=== PATIENT | female | born 1950 | race Caucasian/White ===

== ENCOUNTER 2020-12-19 11:01 | Emergency (ER) | payer OTHER ==
[~2020-12-19] VITALS: Ht 157.5 cm; Wt 74.8 kg
[2020-12-19] MEDS ORDERED: LISINOPRIL20 MG PO (11:19)
[2020-12-19] MEDS ORDERED: METOPROLOL SUCC50 MG PO (11:19)
[2020-12-19] MEDS ORDERED: NORVASC5 MG PO (11:19)
[2020-12-19] MEDS ORDERED: MELOXICAM15 MG PO (11:20)
[2020-12-19] MEDS ORDERED: SIMVASTATIN80 MG PO (11:20)
[2020-12-19] MEDS ORDERED: VITAMIN D350 MC3 PO (11:21)
[2020-12-19] MEDS ORDERED: FAMOTIDINE 40 M40 M1 PO (11:21)
[2020-12-19 11:28] LABS: URINE BILIRUBIN NEGATIVE (Negative); URINE BLOOD TRACE (Negative); URINE CLARITY CLEAR; URINE COLOR YELLOW; URINE GLUCOSE-RANDOM NEGATIVE (Negative); URINE KETONES NEGATIVE (Negative); URINE LEUKOCYTES-REFLEX TRACE (Negative); URINE NITRITE-REFLEX NEGATIVE (Negative); URINE PROTEIN NEGATIVE (Negative); URINE SPECIFIC GRAVITY <= 1.005 (1.005-1.030); URINE UROBILINOGEN 0.2 E.U./dl (0.2-1.0)
[2020-12-19 11:43] LABS: BACTERIA-REFLEX 1-9 Few /HPF (None Seen); CASTS None Seen /LPF (None Seen); CRYSTALS None Seen /LPF (None Seen); MUCUS 0-3 Light strn/LPF (None Seen); SQUAMOUS 0-3 Few /LPF (0-3); URINE RBC 0-2 Rare /HPF (0-2); URINE WBC-REFLEX 0-5 Rare /HPF (0-5)
[2020-12-19 11:54] LABS: ABSOLUTE EOSINOPHILS 0.1 thou/uL (0.0-0.7); ABSOLUTE LYMPHOCYTES 0.8 thou/uL (0.8-5.3); ABSOLUTE MONOCYTES 0.4 thou/uL (0.0-1.2); ABSOLUTE NEUTROPHILS 4.8 thou/uL (1.6-8.1); BASOPHILS 0.7 %; HEMATOCRIT 38.1 % (37.0-47.0); HEMOGLOBIN 12.5 gm/dL (12.0-15.0); LYMPHOCYTES 12.8 %; MCH 28.3 pg (26.0-34.0); MCHC 32.7 g/dL (28.0-37.0); MCV 86.7 fL (80.0-100.0); MONOCYTES 6.4 %; MPV 8.2 fl. (7.2-11.1); NUCLEATED RBCS 0 /100WBC; PLATELET COUNT* 335 thou/uL (150-400); POLYS 79.1 %; RDW-CV 14.1 % (10.5-14.5); WBC 6.1 thou/uL (4.0-11.0)
[2020-12-19 12:25] LABS: CALCIUM 9.2 mg/dL (8.5-10.1); CREATININE 1.1 mg/dL (0.6-1.3); POTASSIUM 3.5 mmol/L (3.5-5.1)
[2020-12-19 12:29] LABS: TOTAL BILIRUBIN 0.2 mg/dL (<0.1-1.0); TOTAL PROTEIN 8.4 g/dL (6.4-8.2)
[2020-12-19] MEDS ORDERED: AMOXICILLIN 50500 MG PO (13:30)
[2020-12-19] MEDS ORDERED: HYDROCODON-ACE1 EAC7 PO (13:33)
[2020-12-19 13:43] VITALS: BP 152/72
== END 2020-12-19 13:45 | disposition home or self-care (01) ==
LOC: M.ERS 11:01
PROVIDERS: Nurse Practitioner Family
DX: K52.9 Noninfective gastroenteritis and colitis, unspecified (principal); Z20.822 Contact with and (suspected) exposure to COVID-19; K08.89 Other specified disorders of teeth and supporting structures; I10 Essential (primary) hypertension; M19.90 Unspecified osteoarthritis, unspecified site; K21.9 Gastro-esophageal reflux disease without esophagitis; Z79.899 Other long term (current) drug therapy; Z88.2 Allergy status to sulfonamides